=== PATIENT | female | born 1940 | race Caucasian/White ===

== ENCOUNTER → 2020-12-08 | Day surgery (SDC) | payer MEDICARE, OTHER ==
[~2020-12-08] MED LIST: FENTANYL CITRATE/PF 100MCG/2 ML INJ ONE; MIDAZOLAM HCL 2 MG/2 ML VIAL ONE; OR PHACO EYE KIT ONE; PREOP PHACO EYE KIT ONE; THYROID PO; [UNRECOGNIZED DRUG - OTHER] PO
[2020-12-08 11:25] VITALS: BP 149/80
== END | disposition home or self-care (01) ==
LOC: OR 09:17
PROVIDERS: ATTEND Ophthalmology
DX: H25.11 Age-related nuclear cataract, right eye (principal); E78.5 Hyperlipidemia, unspecified; R94.6 Abnormal results of thyroid function studies; I25.89 Other forms of chronic ischemic heart disease; E55.9 Vitamin D deficiency, unspecified; Z88.0 Allergy status to penicillin
CPT/HCPCS: 66984; J2250; J3010; V2632